=== PATIENT | female | born 1975 | race Caucasian/White ===

== ENCOUNTER 2017-04-23 06:55 | Day surgery (SDC) | payer BC ==
--- NOTE | 2017-04-16 14:06 | GHP ---
[f rep st] HISTORY AND PHYSICAL DATE OF ADMISSION: 04/23/2017 ADMITTING DIAGNOSES: 1. Right lower quadrant pain. 2. Right ovarian cyst. HISTORY OF PRESENT ILLNESS: The patient is a 41-year-old, nulliparous female with last menstrual period 04/14/2017, who presents to my office the end of February for a surgical consult. The patient has been seen for many years in our office by our nurse practitioner. She is followed closely with serial ultrasounds for a persistent right ovarian cyst. This cyst has slowly been enlarging since August 2015 and now measures 5 x 5 x 5 cm. The patient does note some mild intermittent right lower quadrant pain. No radiation. No exacerbating factors. Denies any GI or complaints. She is currently on OCPs and doing well. She desires to have this right ovarian cyst surgically removed since it is enlarging and she is having discomfort. PAST OB HISTORY: The patient is nulliparous. 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 Cycles are now regular on the pill. They were irregular, had breakthrough bleeding last year with the use of control pills, and then had 2 months of bleeding with the Mirena IUD, and then it stopped for 8 months, and now at the end of October she had irregular cycles again, breakthrough bleeding every 2 weeks. The patient does have a history of abnormal Pap smears. No treatment done. Gardasil was received. The patient denies any history of exposure to sexually transmitted diseases. PAST MEDICAL HISTORY: None. PAST SURGICAL HISTORY: In 2014, she had a broken foot that was pinned. In 2014 , she had a cervical polyp removed. In 2016, arthroscopy of her knee. CURRENT MEDICATIONS: OCPs. ALLERGIES: Penicillin, she has a skin irritation. FAMILY HISTORY: Mother with osteoporosis. Maternal grandfather with diabetes. Both mother and father are living. SOCIAL HISTORY: Patient is single. She is with a partner monogamously. 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 Does regular exercise, cardio/yoga. Socially drinks 3 times a week. Denies tobacco or illicit drug use. DIAGNOSTIC DATA: TSH 2.15. On pelvic ultrasound, uterus measures 7 x 4 x 5 cm. Endometrial thickness 0.41 cm. She has a small fibroid measuring 1 x 1 x 1 cm, subserosal, anterior uterus. Right ovary has a cyst that measures 5 x 5 x 5 cm, previously was 5 x 4 x 4 cm. Left ovary appears normal. No free fluid noted. ASSESSMENT: The patient is a 41-year-old nulliparous who presents with right lower quadrant pain, right ovarian cyst. 1. Patient desires surgical removal of cyst at this time. We discussed the procedure, diagnostic laparoscopy with removal of cyst and/or ovary secondary to symptomatic cyst, its limitations, n.p.o. status, and postop recovery. 2. Surgical consents were obtained. Discussed risks, benefits, alternatives with the patient, including, but not limited to, bleeding, infection, damage to surrounding organs. Patient does understand all risks at this time, and wants to proceed with surgery. 3. 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 4. SCDs for DVT prophylaxis. /[id number]/MODL MTDD
--- NOTE | 2017-04-23 07:20 | PDHPUP ---
History & Physical Update H&P update statement: This history and physical update is based on an assessment of the patient which was completed after admission or registration (within 24 hours), but prior to the surgery/procedure. H&P update: H&P reviewed & patient examined, no change in patient's condition since H&P completed
[2017-04-23] MEDS ORDERED: CLINDAMYCIN 900 MG/DEXTROSE 50 ML IV ONE (07:35)
[2017-04-23] MEDS ORDERED: LR 1,000 ML IV ONE (07:36)
[2017-04-23] MEDS ORDERED: BUPIVACAINE 0.5% 30 ML SDV ONE ×2 (07:36→09:11)
[2017-04-23 07:59] VITALS: PULSE 92
--- NOTE | 2017-04-23 09:07 | PDANEPAE ---
ANE History of Present Illness 41 yo female with ovarian cyst for R cystectomy. ANE Past Medical History - Cardiovascular History Hx Hypertension: No Hx Arrhythmias: No Hx Chest Pain: No Hx Coronary Artery / Peripheral Vascular Disease: No Hx CHF / Valvular Disease: No Hx Palpitations: No - Pulmonary History Hx COPD: No Hx Asthma/Reactive Airway Disease: No Hx Recent Upper Respiratory Infection: No Hx Oxygen in Use at Home: No Hx Sleep Apnea: No Sleep Apnea Screening Result - Last Documented: Negative - Neurologic History Hx Cerebrovascular Accident: No Hx Seizures: No Hx Dementia: No - Endocrine History Hx Diabetes: No Hypothyroid: No Obesity: moderate - Renal History Hx Renal Disorders: No - Liver History Hx Hepatic Disorders: No - Neurological & Psychiatric Hx Hx Neurological and Psychiatric Disorders: No - Cancer History Hx Cancer: No - Congenital Disorder History Hx Congenital Disorders: No - GI History GERD: no Hx Gastrointestinal Disorders: No - Other Health History Other Health History: NEG - Chronic Pain History Chronic Pain: No - Surgical History Prior Surgeries: UTERINE POLYPS. L FOOT - 2 SURG. R KNEE SCOPE. REM HW FOOT ANE Review of Systems Review of systems is: negative Review of Systems: - Exercise capacity METS (RN): 5 METS - Systems Constitutional: Reports: no symptoms ANE Patient History - Allergies Allergies/Adverse Reactions: Penicillins Allergy (Verified 03/26/17 16:23) Unknown WHOOPING COUGH VACCINE Allergy (Severe, Uncoded 03/26/12 22:37) BODY SWELLS "ALL OVER" - Home Medications Home medications: home medication list seen and reviewed Home Medications: Aspirin 03/26/17 [Last Taken 04/12/17] Herbals/Supplements -Info Only 03/26/17 [Last Taken 04/18/17] Microgestin 03/26/17 [Last Taken 04/22/17 22:00] - NPO status NPO Status: no food or drink >8 hours NPO Since - Liquids (Date): 04/22/17 NPO Since - Liquids (Time): 23:30 NPO Since - Solids (Date): 04/22/17 NPO Since - Solids (Time): 23:30 - Anes Hx Anes Hx: post operative nausea and vomiting - Smoking Hx Smoking Status: Never smoked Marijuana use: No - Alcohol Use Alcohol Use: Occasionally (3/week) - Family Anes Hx Family Anes Hx: none Family Hx Anesthesia Complications: NEG ANE Labs/Vital Signs - Vital Signs Blood Pressure: 114/84 Heart Rate: 92 Respiratory Rate: 17 O2 Sat (%): 97 Height: 167.64 cm Weight: 99.79 kg ANE Physical Exam - Airway Neck exam: FROM Mallampati Score: Class 2 Mouth exam: normal dental/mouth exam - Pulmonary Pulmonary: clear to auscultation - Cardiovascular Cardiovascular: regular rate and rhythym - ASA Status ASA Status: II ANE Anesthesia Plan Anesthesia Plan: general endotracheal anesthesia
[2017-04-23] MEDS ORDERED: SILVER NITRATE APPLICATOR 1 APPL TP ONE (09:11)
[2017-04-23] MEDS ORDERED: fentaNYL 100 MCG/2 ML INJ ONE ×2 (09:17→09:18)
[2017-04-23] MEDS ORDERED: DEXAMETHASONE 4 MG/ML VIAL ONE (09:17)
[2017-04-23] MEDS ORDERED: ROCURONIUM 100 MG/10 ML VIAL ONE (09:17)
[2017-04-23] MEDS ORDERED: PROPOFOL/EMULSION 500 MG/50 ML BOTTLE IV ONE ×2 (09:18→09:25)
[2017-04-23] MEDS ORDERED: ONDANSETRON 4 MG/2 ML VIAL ONE (10:09)
[2017-04-23] MEDS ORDERED: KETOROLAC 30 MG/1 ML SDV ONE (10:09)
[2017-04-23] MEDS ORDERED: LIDOCAINE 2% 5 ML SDV ONE (10:09)
[2017-04-23] MEDS ORDERED: PROPOFOL 200 MG/20 ML VIAL ONE (10:31)
[2017-04-23] MEDS ORDERED: PROMETHAZINE HCL 25 MG/ML INJ IVP PRN (11:04)
[2017-04-23] MEDS ORDERED: OXYCODONE/APAP 5/325 TAB PO PRN (11:04)
[2017-04-23] MEDS ORDERED: ALBUTEROL 3 ML DEYVIAL IH PRN (11:04)
[2017-04-23] MEDS ORDERED: NALOXONE HCL 0.4 MG/ML INJ IVP PRN (11:04)
[2017-04-23] MEDS ORDERED: fentaNYL 100 MCG/2 ML INJ IVP PRN (11:04)
[2017-04-23] MEDS ORDERED: DIAZEPAM 10 MG/2 ML SYR IVP PRN (11:04)
[2017-04-23] MEDS ORDERED: LR 500 ML IV PRN (11:04)
[2017-04-23] MEDS ORDERED: ACETAMINOPHEN 500 MG TAB PO PRN (11:04)
[2017-04-23] MEDS ORDERED: NEOSTIGMINE METHYLSULFATE 3 MG/3 ML SYR ONE (11:09)
--- NOTE | 2017-04-23 11:21 | POSTOPPROG ---
Post Op Note Date of Operation: 04/23/17 Surgeon: Hiwot Rashid Hr Payroll Coordinator: Yulissa Sandhu Anesthesiologist: Phoebe Schrader Anesthesia: GET(General Endotracheal) Pre-op Diagnosis: R ovarian cyst; RLQ abdominopelvic pain Post-op Diagnosis: R ovarian cyst; RLQ abdominopelvic pain Indication: 41 y/o nulliparous with RLQ pain and enlarging R ovarian cyst Procedure: Dx Laparoscopy with drainage R cyst and R ovarian cystectomy Findings: Uterus w/ 2-3 cm pedunculated fibroid; 5-6 cm R simple cyst; L adnexa wnl Inf/Abcess present in the surg proc area at time of surgery?: No Depth: Organ Space EBL: Minimal (10 cc) Total fluids administered: 1500 cc LR UO: 125 cc clear urine Complications: None Specimen(s): R ovarian cyst wall
--- NOTE | 2017-04-23 11:28 | POSTANESTH ---
Post Anesthetic Evaluation Cardiovascular Status: Normal, Stable Respiratory Status: Normal, Stable Level of Consciousness/Mental Status: Can Participate in Eval, Mildly Sleepy, Arousable Pain Control: Adequate, Prn Tx Ordered Nausea/Vomiting Control: Adequate, Prn Tx Ordered Complications Possibly Related to Anesthesia: None Noted
[2017-04-23 12:10] VITALS: RESP 16; O2SAT 95
[2017-04-23 13:44] VITALS: TEMP 98.2
[2017-04-23 13:46] VITALS: BP 107/67
--- NOTE | 2017-04-24 03:06 | GOP ---
[f rep st] OPERATIVE REPORT DATE OF OPERATION: 04/23/2017 SURGEON: Hiwot Rashid DO REHAB CONSULTANT: Yulissa wang MD ANESTHESIA: General endotracheal. ANESTHESIOLOGIST: Adilene Schrader MD PREOPERATIVE DIAGNOSIS: 1. Right lower quadrant pain. 2. Ovarian cyst. POSTOPERATIVE DIAGNOSIS: 1. Right lower quadrant pain. 2. Right ovarian cyst. PROCEDURE PERFORMED: Diagnostic laparoscopy with aspiration of right ovarian cyst and right ovarian cystectomy. FINDINGS: Grossly enlarged uterus with a 2-3 cm anterior pedunculated fibroid. Grossly normal-appearing left tube and left ovary. Right ovary was enlarged to about 5-6 cm with a simple cyst and 100 cc of serous fluid drained. Grossly normal-appearing upper abdomen. SPECIMENS: Right ovarian cyst wall. ESTIMATED BLOOD LOSS: 10 cc INDICATIONS: The patient is A 41-year-old nulliparous female who presents to my office after being followed for an enlarging right ovarian cyst for several months now. The patient did develop right lower quadrant intermittent pain and wants to have it surgically removed at this time. We discussed the risks, benefits, and alternatives of the procedure including, but not limited to, bleeding, infection, and damage to surrounding organs. The patient understands all of these risks and wants to proceed with surgery. DESCRIPTION OF PROCEDURE: The patient was taken to the operating room where general anesthesia was obtained without difficulty. She was placed in the dorsal lithotomy position, prepped and draped in the usual sterile fashion and Good catheter was placed in the bladder. After a WHO time-out was performed, the open-sided speculum was placed in the vagina. Single-tooth tenaculum was used to grasp the anterior lip of the cervix. The uterus sounded to 9 cm and the acorn uterine manipulator was inserted and used to manipulate the uterus. The speculum was then removed from the vagina. We then turned our attention to the abdomen and, after injecting 0.5% plain Marcaine, a 5 mm infraumbilical skin incision was made with a scalpel. The Veress needle was then placed through that incision without difficulty while tenting the abdominal wall. There was good drop in pressure upon entry into the peritoneal cavity. Pneumoperitoneum was created with carbon dioxide gas. Under direct visualization an atraumatic 5 mm trocar was then placed through this port with good visualization of the pelvis. After injection of more 0.5% plain Marcaine, 5 mm ports were placed in left lower quadrant as well as the right lower quadrant. Balloons were inflated and the patient was placed in Trendelenburg position. The pelvic findings were noted above. At this time, using the needlepoint instrument and a syringe, the right ovarian cyst was aspirated with about 100 cc of clear serous fluid. The incision on the right ovary was then extended with the LigaSure and the cyst wall was then dissected out. There was some bleeding noted, the LigaSure was used to help with hemostasis. The cyst wall was finally removed from the right ovary and removed through the 5 mm right lower quadrant port without difficulty and sent to Pathology. The remainder of the right ovarian tissue looked normal and viable with good blood supply. It did appear hemostatic. The pelvis was then copiously irrigated with normal saline and again hemostasis was noted. Both ureters were seen and peristalsis was noted. All instruments were then removed from the abdomen and the air was allowed to escape from the abdomen. The incisions were then closed with 3-0 Vicryl and covered with Steri-Strips and Band-Aids. The Erath uterine manipulator as well as single-tooth tenaculum were removed and hemostasis was noted. Good catheter was removed at this time as well. The patient tolerated the procedure well with no complications. All sponge, lap, needle, and instrument counts were correct x2. The patient was then taken out of dorsal lithotomy position, awakened, and taken to the recovery room in good condition. FLUIDS REPLACED: 1500 cc of LR. URINE OUTPUT: 125 cc of clear urine at the end of the procedure. /[id number]/MODL MTDD
== END 2017-04-23 13:11 | disposition home or self-care (01) ==
LOC: FSGY 06:55
PROVIDERS: ATTEND Obstetrics & Gynecology
PROC: 0UB04ZX Excision of Right Ovary, Percutaneous Endoscopic Approach, Diagnostic (ICD-10-PCS; principal; 2017-04-23 09:00)
PROC: 0U904ZX Drainage of Right Ovary, Percutaneous Endoscopic Approach, Diagnostic (ICD-10-PCS; principal; 2017-04-23 09:00)
DX: N83.201 Unspecified ovarian cyst, right side (principal); D25.2 Subserosal leiomyoma of uterus; Z82.62 Family history of osteoporosis
CPT/HCPCS: J1100; J1885; J2405; J2704; J2710; J3010

== ENCOUNTER → 2018-02-19 | Outpatient (CLI) | payer BC | LOC: FIMAGING 15:50 | PROVIDERS: ATTEND Nurse Practitioner Women's Health | DX: Z12.31 Encounter for screening mammogram for malignant neoplasm of breast (principal); Z80.3 Family history of malignant neoplasm of breast ==

== ENCOUNTER → 2018-04-02 | Outpatient (CLI) | payer BC | LOC: BMCIMAGING 10:54 | PROVIDERS: ATTEND Emergency Medicine | DX: S91.311A Laceration without foreign body, right foot, initial encounter (principal) ==